=== PATIENT | female | born 1955 | race Caucasian/White ===

== ENCOUNTER 2020-04-13 09:58 | Outpatient (CLI) | payer MEDICARE, OTHER, SELFPAY ==
[2020-04-13 10:29] LABS: Basophils Absolute Auto 0.1 K/mm3 (0.0-0.1); Basophils Percent Auto 1.3 % (0.2-1.2); Eosinophils Absolute Auto 0.3 K/mm3 (0-0.3); Eosinophils Percent Auto 3.6 % (0-4.4); Hematocrit 45.9 % (37.0-47.0); Hemoglobin 15.2 g/dL (12.0-15.0); Immature Granulocyte Absolute 0.02 K/mm3 (0.00-0.031); Immature Granulocyte Percent A 0.3 % (0-0.5); Lymphocytes Absolute Auto 1.97 K/mm3 (0.9-3.2); Lymphocytes Percent Auto 26.6 % (18.3-44.2); Mean Corpuscular HGB Conc 33.1 g/dl (32-36); Mean Corpuscular Hemoglobin 30.4 pg (26-34); Mean Corpuscular Volume 91.8 fl (80-100); Mean Platelet Volume 9.7 fl (7.4-10.4); Monocytes Absolute Auto 0.5 K/mm3 (0.1-0.6); Monocytes Percent Auto 6.2 % (2.6-8.5); Neutrophils Absolute Auto 4.6 K/mm3 (1.3-6.7); Platelet Count Result 284 k/mm3 (150-375); White Blood Count 7.4 K/mm3 (4.5-10.0)
[2020-04-13 10:37] LABS: Alanine Aminotransferase 14 U/L (4-35); Albumin Level 4.2 g/dL (3.5-5.1); Alkaline Phosphatase 129 U/L (38-126); Aspartate Amino Transferase 20 U/L (14-36); Bilirubin,Total 0.5 mg/dL (0.2-1.3); Blood Urea Nitrogen 10 mg/dL (7-17); Calcium 9.1 mg/dL (8.4-10.2); Carbon Dioxide 28 mmol/L (22-30); Chloride 101 mmol/L (98-107); Cholesterol 210 mg/dL (0-200); Estimated Glomerular Filt Rate > 60; Glucose 94 mg/dL (65-105); HDL Direct 37 mg/dL; Potassium 4.4 mmol/L (3.4-5.0); Sodium 135 mmol/L (137-145); Triglycerides 107 mg/dL (<150)
[2020-04-13 10:48] LABS: LDL Cholesterol Direct 145 mg/dL
== END 2020-04-13 09:59 | disposition home or self-care (01) ==
PROVIDERS: PCP Family Medicine; Visit Provider Family Medicine
DX: E78.2 Mixed hyperlipidemia (principal); I10 Essential (primary) hypertension
CPT/HCPCS: 36415; 80053; 80061; 85025

== ENCOUNTER 2020-04-27 10:04 | Outpatient (CLI) | payer MEDICARE, OTHER, SELFPAY ==
--- NOTE | ~2020-04-27 | XR_ITS ---
EXAMINATION: XR chest 2V EXAM DATE: 04/27/2020 10:26 INDICATION: Short of breath. TECHNIQUE: Frontal and lateral projections of the chest obtained and reviewed. Comparison is made to prior examination from 05/06/2016. FINDINGS: Moderate chronic hyperinflation. The lungs are clear. There are no pleural effusions. Th e cardiomediastinal silhouette is within normal limits. There is no pneumothorax suspected. The bon es and soft tissues are unremarkable. IMPRESSION: No acute cardiopulmonary findings. Reviewed, dictated and finalized at location A.
== END 2020-04-27 10:05 | disposition home or self-care (01) ==
PROVIDERS: PCP Family Medicine; Visit Provider Family Medicine
DX: R06.02 Shortness of breath (principal)
CPT/HCPCS: 71046

== ENCOUNTER 2020-05-15 12:52 | Outpatient (CLI) | payer MEDICARE, OTHER, SELFPAY ==
--- NOTE | ~2020-05-15 | US_ITS ---
EXAMINATION: US art doppler w marianela NOWAK EXAM DATE: 05/15/2020 14:03 INDICATION: Claudication. TECHNIQUE: Segmental pressures and plethysmographic and Doppler waveforms of the brachial and lower e xtremity arteries were obtained. There is no prior study for comparison. FINDINGS: Right and left brachial artery pressures of 182 mm Hg and 158 mm Hg, respectively, are concordant (no rmal difference <= 30 mmHg). RIGHT LEG: The ankle-brachial index (LAURA) is 1.05 (normal >= 0.9-1). The great toe-brachial index (TBI) is 0.72 (normal >= 0.65). The lower extremity ratios, segmental pressure gradients as follows; Proximal superficial femoral artery:- 1.04 (190 mmHg). Distal superficial femoral artery: ----- 1.08 (196 mmHg). Popliteal: 1.13 (206 mmHg). Posterior tibial: 0.99 (180 mmHg). Dorsalis pedis: 1.05 (192 mmHg). (Normal gradients <= 20-30 mmHg between adjacent levels on the same leg or the same levels on the two legs). Arterial waveforms are biphasic. LEFT LEG: The ankle-brachial index (LAURA) is 1.01 (normal >= 0.9-1). The great toe-brachial index (TBI) is 0.60 (normal >= 0.65). The lower extremity ratios, segmental pressure gradients as follows; Proximal superficial femoral artery:- Could not obtain ( mmHg). Distal superficial femoral artery: ----- Could not obtain ( mmHg). Popliteal: 1.14 (207 mmHg). Posterior tibial: 1.01 (184 mmHg). Dorsalis pedis: 1.00 (182 mmHg). (Normal gradients <= 20-30 mmHg between adjacent levels on the same leg or the same levels on the two legs). Arterial waveforms are biphasic. IMPRESSION: 1. Right ankle-brachial index 1.05, normal. 2. Left ankle-brachial index 1.01, normal. 3. Elevated blood pressure. Reviewed, dictated and finalized at location A.
--- NOTE | ~2020-05-15 | US_ITS ---
EXAMINATION: US carotid duplex BI DATE: 05/15/2020 14:03 INDICATION: Carotid atherosclerosis and stenosis. Other specified symptoms and signs involving [place] of [place]. TECHNIQUE: Grayscale, color Doppler, and pulsed Doppler images of the cervical carotid arteries were obtained. The degree of vessel stenosis is placed in one of the following categories: normal, <50%, 5 0-69%, >=70% but less than near-occlusion, near-occlusion, or total occlusion. Note that percent sten osis relative to normal distal artery lumen diameter is indirectly measured from velocity measurement s as described by Gaurang, et al. Radiology 2003; 229:340-346. COMPARISON: 10/14/2013 FINDINGS: RIGHT: The right common carotid artery (CCA) peak systolic velocity (PSV) is 113 cm/s. The right internal ca rotid artery (ICA) PSV is 104 cm/s. The right ICA end-diastolic velocity (EDV) is 31 cm/s. The right ICA/CCA PSV ratio is 0.9. Grayscale and color Doppler images yield an estimate of <50% diameter reduc tion from plaque in the ICA. The external carotid artery (ECA) PSV is 131 cm/s. There is antegrade fl ow in the right vertebral artery. LEFT: The left CCA PSV is 88 cm/s. The left ICA PSV is 107 cm/s. The left ICA EDV is 26 cm/s. The left ICA/ CCA PSV ratio is 1.2. Grayscale and color Doppler images yield an estimate of <50% diameter reduction from plaque in the ICA. The ECA PSV is 80 cm/s. There is antegrade flow in the left vertebral artery . IMPRESSION: 1. <50% stenosis in the right internal carotid artery. 2. <50% stenosis in the left internal carotid artery. Reviewed, dictated and finalized at location A.
== END 2020-05-15 12:53 | disposition home or self-care (01) ==
PROVIDERS: PCP Family Medicine; Visit Provider Family Medicine
DX: I73.9 Peripheral vascular disease, unspecified (principal); R09.89 Other specified symptoms and signs involving the circulatory and respiratory systems; I65.23 Occlusion and stenosis of bilateral carotid arteries
CPT/HCPCS: 93880; 93923

== ENCOUNTER 2020-06-11 07:35 | Outpatient (CLI) | payer MEDICARE, OTHER, SELFPAY ==
--- NOTE | 2020-06-16 11:54 | WPDPFTINT ---
PFT Interpretation PFT Interpretation: This PFT met all criteria for ATS standards and reproducibility FEV/FVC post bronchodilator 66% FEV1 61% or 1.25 liters FVC 67% or 1.90 liters TLC 98% or 4.58 liters RV 130% RV/TLC 51% DLCO 66% when adjusted for alveolar volume but not adjusted for hemoglobin Flow volume loops showed significant expiratory coving Impression: Moderate airflow obstruction with air trapping and mild reduced diffusion capacity. This correlates with probable COPD. Clinical correlation is advised.
== END 2020-06-11 07:36 | disposition home or self-care (01) ==
PROVIDERS: PCP Family Medicine; Visit Provider Family Medicine
DX: R06.02 Shortness of breath (principal); F17.200 Nicotine dependence, unspecified, uncomplicated; R94.2 Abnormal results of pulmonary function studies
CPT/HCPCS: 94060; 94726; 94729

== ENCOUNTER 2021-01-05 12:06 | Outpatient (CLI) | payer MEDICARE, OTHER, SELFPAY ==
--- NOTE | ~2021-01-05 | CT_ITS ---
EXAMINATION: CT brain wo con EXAM DATE: 01/05/2021 12:22 INDICATION: S09.90XA - Unspecified injury of head, initial encounter . Fall, frontal head injury. Howie sea and vomiting. TECHNIQUE: Spiral CT of the head was performed without contrast. Axial, coronal and sagittal images were reviewed. The dose-length product (DLP) for this examination was 605.33 mGy-cm. The exposure w as tailored according to patient size, and iterative reconstruction (ASIR) was used as additional dos e reduction technique. Comparison is made to prior examination from 05/20/2014. FINDINGS: There is no acute intraparenchymal hemorrhage. No evidence of intraparenchymal brain mass lesion. No evidence of acute infarction. Please note that initial head CT has limited sensitivity f or small or acute infarctions. There is mild periventricular and subcortical hypodensity, nonspecific but probably related to small vessel ischemic disease. There is moderate prominence of the sulci a nd ventricles related to cerebral atrophy. There is intracranial carotid arteriosclerosis. There a re no extra-axial collections. There is no mass effect or midline shift. The orbits are unremarkabl e. There is small left frontal scalp contusion. The visualized sinuses and mastoid air cells are wel l aerated. IMPRESSION: 1. No acute intracranial findings. 2. Chronic age related findings. 3. Small left frontal scalp effusion. Reviewed, dictated and finalized at location A.
== END 2021-01-05 12:07 | disposition home or self-care (01) ==
PROVIDERS: PCP Family Medicine; Visit Provider Family Medicine
DX: S09.90XA Unspecified injury of head, initial encounter (principal)
CPT/HCPCS: 70450

== ENCOUNTER 2021-03-18 17:10 | Outpatient (CLI) | payer MEDICARE, OTHER, SELFPAY ==
--- NOTE | ~2021-03-18 | MM_ITS ---
EXAMINATION: MM screening [facility] BI w stacie HISTORY: Screening mammogram TECHNIQUE: Craniocaudal and mediolateral oblique 3-D tomosynthesis images were obtained and synthetic 2-D images were generated. CAD analysis was submitted and interpreted. COMPARISON: 02/15/2005, 01/28/2005 BREAST PARENCHYMAL COMPOSITION: There are scattered areas of fibroglandular density. FINDINGS: Scattered benign-appearing calcifications are present. There is no evidence of suspicious m ass, calcification, or architectural distortion to suggest malignancy in either breast. There has bee n no suspicious interval change. IMPRESSION: 1. No mammographic evidence of malignancy. 2. Recommend routine screening mammography in one year. BI-RADS Category 2: Benign finding(s). Reviewed, dictated and finalized at location A.
== END 2021-03-18 17:11 | disposition home or self-care (01) ==
LOC: ANHIMG 17:13
PROVIDERS: PCP Family Medicine; Visit Provider Family Medicine
DX: Z12.31 Encounter for screening mammogram for malignant neoplasm of breast (principal)
CPT/HCPCS: 77063; 77067

== ENCOUNTER 2021-07-16 14:12 | Outpatient (CLI) | payer MEDICARE, OTHER, SELFPAY ==
[2021-07-16 15:10] LABS: Basophils Absolute Auto 0.1 K/mm3 (0.0-0.1); Basophils Percent Auto 0.9 % (0.2-1.2); Eosinophils Absolute Auto 0.1 K/mm3 (0-0.3); Eosinophils Percent Auto 1.3 % (0-4.4); Hematocrit 39.6 % (37.0-47.0); Hemoglobin 13.7 g/dL (12.0-15.0); Immature Granulocyte Absolute 0.04 K/mm3 (0.00-0.031); Immature Granulocyte Percent A 0.5 % (0-0.5); Lymphocytes Percent Auto 20.5 % (18.3-44.2); Mean Corpuscular HGB Conc 34.6 g/dl (32-36); Mean Corpuscular Hemoglobin 31.6 pg (26-34); Mean Corpuscular Volume 91.5 fl (80-100); Monocytes Absolute Auto 0.8 K/mm3 (0.1-0.6); Monocytes Percent Auto 8.9 % (2.6-8.5); Neutrophils Percent Auto 67.9 % (45.5-73.1); Platelet Count Result 310 k/mm3 (150-375); Red Blood Count 4.33 M/mm3 (4.2-5.4); Red Cell Distribution Width 12.2 % (11.5-14.5); White Blood Count 8.8 K/mm3 (4.5-10.0)
[2021-07-20 14:38] LABS: Vitamin D 1,25 (OH)2 Total 28 pg/mL (18-72); Vitamin D2 1,25 (OH)2 <8 pg/mL; Vitamin D3 1,25 (OH)2 28 pg/mL
== END 2021-07-16 14:13 | disposition home or self-care (01) ==
PROVIDERS: PCP Family Medicine; Visit Provider Family Medicine
DX: E78.2 Mixed hyperlipidemia (principal); E55.9 Vitamin D deficiency, unspecified
CPT/HCPCS: 36415; 82652; 85025

== ENCOUNTER 2021-12-22 14:43 | Outpatient (CLI) | payer MEDICARE, OTHER, SELFPAY ==
--- NOTE | ~2021-12-22 | XR_ITS ---
EXAMINATION: XR ribs BI 3V w CXR 2V EXAM DATE: 12/22/2021 15:35 INDICATION: Syncope yesterday, bruising to rt breast/midrib pain bilat . TECHNIQUE: Frontal projection of the upper left ribs, frontal projection of the lower left ribs, obli que projection of the left ribs. Frontal projection of the upper right ribs, frontal projection of t he lower right ribs, oblique projection of the right ribs, frontal and lateral chest x-ray(s) for int erpretation. There is prior chest x-ray from 04/27/2020 for comparison. FINDINGS: There are no displaced acute rib fractures identified. Consider educating patient that even if there is a radiographically occult nondisplaced rib fracture, there is no specific treatment othe r than to refrain from activity that prevents healing. There are cholecystectomy clips. No confluent consolidation, pneumothorax or pleural effusion suspect ed. The lungs are hyperinflated which can be seen with chronic obstructive pulmonary disease (a clini jose miguel diagnosis of functional impairment), but is not diagnostic of it. IMPRESSION: No acute displaced rib fractures bilaterally. Reviewed, dictated and finalized at location G.
--- NOTE | ~2021-12-22 | CT_ITS ---
EXAMINATION: CT brain wo con DATE: 12/22/2021 15:15 INDICATION: Syncope and collapse TECHNIQUE: Computed tomography (CT) of the head was performed without intravenous contrast. Sagittal and coronal reconstructions were performed. The mA was adjusted according to patient size. Iterative reconstruction technique was employed. The dose-length product was 605.33 mGy-cm. COMPARISON: head CT dated 01/05/2021 FINDINGS: No acute intracranial hemorrhage, acute infarction or abnormal extra axial fluid collection. There is mild scattered white matter hypoattenuation consistent with chronic small vessel ischemic disease. S ymmetric prominence of the sulci consistent with mild age-appropriate diffuse cerebral volume loss. Ventricles are normal and symmetric. No mass/mass effect. The orbits, paranasal sinuses and mastoid a ir cells are normal. IMPRESSION: 1. Age-related changes including mild diffuse volume loss and mild scattered white matter hypoattenua tion consistent with chronic small vessel ischemic disease. No acute intracranial process. Reviewed, dictated and finalized at location A. IMPRESSION: 1. Age-related changes including mild diffuse volume loss and mild scattered wh ite matter hypoattenuation consistent with chronic small vessel ischemic diseas e. No acute intracranial process.
--- NOTE | ~2021-12-22 | XR_ITS ---
EXAMINATION: XR humerus LT EXAM DATE: 12/22/2021 15:34 INDICATION: Syncope and collapse, pain throughout lft humerus TECHNIQUE: 2 orthogonal projections left humerus. Lateral projection of the elbow. There is no prio r study for comparison. FINDINGS: There are no acute left humerus fractures or dislocations identified. There is no subcutan eous gas. The soft tissue is unremarkable. There are no radiopaque foreign bodies. IMPRESSION: 1. XR humerus LT exam without acute osseous findings. Reviewed, dictated and finalized at location G.
[2021-12-22 16:54] LABS: Basophils Absolute Auto 0.1 K/mm3 (0.0-0.1); Basophils Percent Auto 0.7 % (0.2-1.2); Eosinophils Absolute Auto 0.3 K/mm3 (0-0.3); Eosinophils Percent Auto 2.6 % (0-4.4); Hematocrit 41.2 % (37.0-47.0); Hemoglobin 13.6 g/dL (12.0-15.0); Immature Granulocyte Absolute 0.04 K/mm3 (0.00-0.031); Immature Granulocyte Percent A 0.4 % (0-0.5); Lymphocytes Absolute Auto 2.65 K/mm3 (0.9-3.2); Lymphocytes Percent Auto 24.8 % (18.3-44.2); Mean Corpuscular Hemoglobin 31.9 pg (26-34); Mean Corpuscular Volume 96.5 fl (80-100); Mean Platelet Volume 9.7 fl (7.4-10.4); Monocytes Absolute Auto 0.8 K/mm3 (0.1-0.6); Neutrophils Absolute Auto 6.9 K/mm3 (1.3-6.7); Neutrophils Percent Auto 64.5 % (45.5-73.1); Platelet Count Result 291 k/mm3 (150-375); Red Blood Count 4.27 M/mm3 (4.2-5.4); Red Cell Distribution Width 12.9 % (11.5-14.5); White Blood Count 10.7 K/mm3 (4.5-10.0)
[2021-12-22 17:28] LABS: Alanine Aminotransferase 17 U/L (4-35); Albumin Level 4.5 g/dL (3.5-5.1); Alkaline Phosphatase 152 U/L (38-126); Anion Gap 7 mmol/L (8-16); Aspartate Amino Transferase 26 U/L (14-36); Bilirubin,Total 0.3 mg/dL (0.2-1.3); Blood Urea Nitrogen 15 mg/dL (7-17); Carbon Dioxide 29 mmol/L (22-30); Chloride 98 mmol/L (98-107); Cholesterol 121 mg/dL (0-200); Estimated Glomerular Filt Rate > 60; Glucose 87 mg/dL (65-110); HDL Direct 39 mg/dL; Potassium 3.6 mmol/L (3.4-5.0); Sodium 134 mmol/L (137-145); Triglycerides 122 mg/dL (<150)
[2021-12-22 17:38] LABS: LDL Cholesterol Direct 52 mg/dL
== END 2021-12-22 14:44 | disposition home or self-care (01) ==
LOC: ANHIMG 14:57
PROVIDERS: PCP Family Medicine; Visit Provider Nurse Practitioner Gerontology
DX: S00.93XA Contusion of unspecified part of head, initial encounter (principal); R55 Syncope and collapse; F17.210 Nicotine dependence, cigarettes, uncomplicated; S20.219A Contusion of unspecified front wall of thorax, initial encounter; M79.603 Pain in arm, unspecified; E78.5 Hyperlipidemia, unspecified; I10 Essential (primary) hypertension
CPT/HCPCS: 36415; 70450; 71046; 71110; 73060; 80053; 80061; 84443; 85025

== ENCOUNTER 2022-05-18 06:32 | Outpatient (CLI) | payer MEDICARE, OTHER, SELFPAY ==
--- NOTE | 2022-05-18 | EST_ITS ---
Patient Info Name: Sheryl Dejesus Age: 66 years : 1955 Gender: Female Ht: 63 in Wt: 147 lbs BSA: 1.74 m2 HR: 73 bpm BP: 177 / 87 mmHg Exam Date: 05/18/2022 9:56 AM Patient Status: Outpatient Admit Date: 05/18/2022 Staff Ordering Physician: Madison Leos NP Attending Provider: DR. KINGSLEY Exercise Technologist: Alee Su CT Exercise Physician: Roberto Kingsley DO Exam Type: CA stress elizabeth w NM Study Info Indications I67.9 - Cerebrovascular disease, unspecified A regadenoson stress test was performed. Summary 1. 1. Negative lexiscan stress test for ischemic ST changes by ECG criteria. 2. 2. Baseline hypertension. 3. 3. Nuclear scan to follow and will be reported separately. Please correlate with it. 4. 4. Patient informed of the above results. Protocol: Lexiscan Stress ECG Details Stage: REST Duration (min): 2 min : 1 sec HR (bpm): 73 SBP (mmHg): 177 DBP (mmHg): 87 Stage: REST Duration (min): 18 min : 55 sec HR (bpm): 71 SBP (mmHg): 177 DBP (mmHg): 87 Stage: STAGE 1 Duration (min): 1 min : 0 sec HR (bpm): 85 SBP (mmHg): 173 DBP (mmHg): 69 Stage: RECOVERY Duration (min): 1 min : 0 sec HR (bpm): 87 SBP (mmHg): 173 DBP (mmHg): 69 Stage: RECOVERY Duration (min): 2 min : 0 sec HR (bpm): 84 SBP (mmHg): 173 DBP (mmHg): 69 Stage: RECOVERY Duration (min): 3 min : 0 sec HR (bpm): 84 SBP (mmHg): 145 DBP (mmHg): 69 Stage: RECOVERY Duration (min): 3 min : 14 sec HR (bpm): 81 SBP (mmHg): 145 DBP (mmHg): 69 Rest HR: 71 bpm Peak HR: 89 bpm Rest Sys BP: 177 mmHg Peak Sys BP: 173 mmHg Max Pred HR: 153 bpm % Max Pred HR: 58 % Target HR: 130 bpm Max RPP: 15,397 bpm*mmHg Termination Reason: Completed protocol Cardiac Symptoms: Shortness of breath Total Time: 1 min : 0 sec Rest Olmedo BP: 87 mmHg Peak Olmedo BP: 69 mmHg Total Dose: 0.4 mg Resting ECG Sinus rhythm. Stress ECG No ST changes. Arrhythmias None. Report Signatures
--- NOTE | ~2022-05-18 | NM_ITS ---
EXAMINATION: NM elizabeth stress w perfusion DATE: 05/18/2022 10:43 INDICATION: Shortness of breath. Cerebrovascular disease. TECHNIQUE: Rest images were obtained following intravenous administration of 12.0 mCi Tc99m tetrofosm in (Myoview). The patient was infused intravenously with Lexiscan (Regadenoson). Then, 31.9 mCi Tc99m tetrofosmin (Myoview) was administered intravenously, and stress images were obtained. Data was kelsi nstructed into short axis and horizontal and vertical long axis SPECT images. Gated SPECT images were also obtained. COMPARISON: None. FINDINGS: There is no definite reversible or fixed perfusion abnormality to suggest ischemia or infar ction. There is normal left ventricular chamber size, wall motion and ejection fraction. Left ventr icular ejection fraction measures >70%. IMPRESSION: 1. Normal myocardial perfusion at rest and during stress. 2. Left ventricular ejection fraction measuring >70%. Reviewed, dictated and finalized at location A.
--- NOTE | 2022-05-18 07:42 | ECHO_ITS ---
Patient Info Name: Sheryl Dejesus Age: 66 years : 1955 Gender: Female Ht: 63 in Wt: 150 lbs BSA: 1.76 m2 HR: 75 bpm BP: 144 / 92 mmHg Technical Quality: Good Exam Date: 05/18/2022 8:13 AM Exam Location: [facility] Patient Status: Outpatient Admit Date: 05/18/2022 Staff Ordering Physician: Madison Leos NP Floor Runner: Reed Toney RDCS, RT Attending Provider: Madison Leos NP Referring Physician: Dafne RIBEIRO; Exam Type: CA echo doppler color flow Study Info Indications I05.0 - Rheumatic mitral stenosis Complete two-dimensional, color flow and Doppler transthoracic echocardiogram is performed. Strain analysis performed. Summary 1. Complete two-dimensional, color flow and Doppler transthoracic echocardiogram is performed. 2. Left ventricular chamber dimension is normal. 3. Left ventricular systolic function is normal, estimated at 60-65%. 4. The left ventricular diastolic function is grade I diastolic dysfunction. 5. E/e' 10 is mildly elevated. 6. Global longitudinal strain is normal at -18.8%. 7. The mitral valve has mildly thickened leaflets. 8. There is mild mitral valve regurgitation. Left Ventricle E/e' 10 is mildly elevated. Global longitudinal strain is normal at -18.8%. Left ventricular chamber dimension is normal. Left ventricular systolic function is normal, estimated at 60-65%. The left ventricular diastolic function is grade I diastolic dysfunction. Right Ventricle Right ventricular systolic function is normal and with normal TAPSE 2.1 cm. Right ventricular chamber dimension is normal. Left Atria Left atrial chamber dimension is normal. Right Atria Right atrial chamber dimension is normal. Aortic Valve The aortic valve is trileaflet. There is no aortic valve stenosis. There is no aortic valve regurgitation. Pulmonic Valve There is no pulmonic regurgitation. Mitral Valve The mitral valve has mildly thickened leaflets. There is no mitral valve stenosis. There is mild mitral valve regurgitation. Tricuspid Valve There is no tricuspid valve regurgitation. Pericardium/Pleural There is no pericardial effusion. Inferior Vena Cava Normal inferior vena cava with >50% collapse upon inspiration consistent with normal right atrial pressure, 5 mmHg. Aorta The aortic root size at the sinus of Valsalva is normal. Left Ventricular Outflow Tract Name Value Normal LVOT 2D LVOT Diameter 2.0 cm LVOT Doppler LVOT Peak Gradient 6 mmHg LVOT Mean Gradient 3 mmHg LVOT VTI 27 cm LVOT VTI/AV VTI Ratio 0.8 LVOT Stroke Volume 82 ml LVOT CO 5.7 l/min LVOT CI 3.2 l/min/m2 Mitral Valve Name Value Normal MV Doppler
== END 2022-05-18 06:33 | disposition home or self-care (01) ==
PROVIDERS: PCP Family Medicine; Visit Provider Nurse Practitioner Gerontology
DX: I10 Essential (primary) hypertension (principal); Z72.0 Tobacco use; I67.9 Cerebrovascular disease, unspecified; I05.9 Rheumatic mitral valve disease, unspecified; R06.02 Shortness of breath
CPT/HCPCS: 78452; 93017; 93306; A9502; J2785

== ENCOUNTER 2022-05-25 08:36 | Outpatient (CLI) | payer MEDICARE, OTHER, SELFPAY ==
--- NOTE | ~2022-05-25 | CT_ITS ---
EXAMINATION: CT lung screening DATE: 05/25/2022 09:00 INDICATION: Personal history of nicotine dependence, current smoker with 30 pack year history TECHNIQUE: Computed tomography (CT) of the chest was performed without intravenous contrast. The dose -length product (DLP) was 58.56 mGy-cm. Automated exposure control and iterative reconstruction techn [employer] were employed. COMPARISON: None FINDINGS: There is a 2 mm nodule of the left lower lobe. The lungs are free of acute opacities. No pl eural effusion or pneumothorax. Calcified pulmonary nodules and calcified right hilar and mediastinal lymph nodes are consistent with old granulomatous disease. No pathologically enlarged thoracic lymph nodes are identified. The heart size is normal. Calcified coronary artery atherosclerosis is noted. There is a small sliding hiatal hernia. The gallbladder is surgically absent. IMPRESSION: 1. Lung-RADS category 2: Benign appearance or behavior. Continue annual screening with noncontrast lo w-dose chest CT in 12 months. Reviewed, dictated and finalized at location B. IMPRESSION: 1. Lung-RADS category 2: Benign appearance or behavior. Continue annual screeni ng with noncontrast low-dose chest CT in 12 months.
== END 2022-05-25 08:37 | disposition home or self-care (01) ==
LOC: ANHIMG 08:45
PROVIDERS: PCP Family Medicine; Visit Provider Nurse Practitioner Gerontology
DX: Z12.2 Encounter for screening for malignant neoplasm of respiratory organs (principal); Z87.891 Personal history of nicotine dependence
CPT/HCPCS: 71271

== ENCOUNTER 2022-07-13 12:40 | Outpatient (CLI) | payer MEDICARE, OTHER, SELFPAY ==
--- NOTE | ~2022-07-13 | DEXA_ITS ---
Bone Density Report Name: WINTER EDMOND Age: 66 Sex: Female Ethnicity: White Date of : 1955 Indication: postmenopausal; screening for osteoporosis; height loss; Referring Provider: KIKE SAN Study: Bone densitometry was performed. Exam Date: July 13, 2022 Accession number: [id number] Bone Density: Region BMD T-score Z-score Classification AP Spine(L1-L4) 0.783 -2.4 -0.5 Osteopenia Femoral Neck (Left) 0.578 -2.4 -0.8 Osteopenia Total Hip (Left) 0.654 -2.4 -1.0 Osteopenia Femoral Neck (Right) 0.621 -2.1 -0.4 Osteopenia Total Hip (Right) 0.657 -2.3 -1.0 Osteopenia Total Hip Mean 0.656 -2.4 -1.0 Osteopenia World Health Organization criteria for BMD impression classify patients as: Normal (T-score at or above -1.0), Osteopenia (T-score between -1.0 and -2.5), or Osteoporosis (T-score at or below -2.5). 10-year Fracture Risk(1): Major Osteoporotic Fracture 14% Hip Fracture 4.5% Reported Risk Factors: [place] (), Neck BMD=0.578, BMI=26.9, smoking (1) FRAX(R) Version 3.08. Fracture probability calculated for an untreated patient. Fracture probability may be lower if the patient has received treatment. Clinical Information Provided by Patient: Smokes Patient maximum height was 63 Menopause Age: 44 No regular weight bearing exercise Drinks caffeinated beverages Onset of menses at age 8 Number of children 2 Impression: The patient has low bone mass, based on the Total Spine T-score. The patient has an estimated ten-year risk of hip fracture of 4.5% and an estimated ten-year risk of major fracture of 14%, based on the WHO FRAX algorithm. The patient has risk factors, including: smoking. Discussion: BONE DENSITY IS LOW AT ONE OR MORE SKELETAL SITES. THE PATIENT'S BMD AND CLINICAL RISK FACTORS CONTRIBUTE TO THIS PATIENT'S INCREASED RISK OF FRACTURE. This patient's lowest T-score is low at one or more skeletal sites. It meets the World Health Organization's (WHO) criteria for ?low bone mass? (T-score between -1.0 and -2.5). The patient's 10-year risk of hip fracture as calculated by FRAX exceeds the threshold where pharmacological therapy is recommended by the National Osteoporosis Foundation (NOF). However, all treatment decisions require clinical judgment and consideration of individual patient factors, including patient preferences, comorbidities, previous drug use, risk factors not captured in the FRAX model (e.g., frailty, falls, vitamin D deficiency, increased bone turnover, interval significant decline in bone density) and possible under or overestimation of fracture risk by FRAX. The patient should follow a healthful lifestyle (good nutrition with adequate calcium and vitamin D, and appropriate weight-bearing exercise). Follow-Up: Consider a repeat
== END 2022-07-13 12:41 | disposition home or self-care (01) ==
LOC: ANHIMG 12:43
PROVIDERS: PCP Family Medicine; Visit Provider Nurse Practitioner Gerontology
DX: Z78.0 Asymptomatic menopausal state (principal); M85.851 Other specified disorders of bone density and structure, right thigh; M85.88 Other specified disorders of bone density and structure, other site; M85.852 Other specified disorders of bone density and structure, left thigh
CPT/HCPCS: 77080

== ENCOUNTER 2023-01-16 10:17 | Outpatient (CLI) | payer MEDICARE, OTHER, SELFPAY ==
[2023-01-16 11:04] LABS: Basophils Percent Auto 0.3 % (0.2-1.2); Hematocrit 39.7 % (37.0-47.0); Hemoglobin 13.6 g/dL (12.0-15.0); Immature Granulocyte Absolute 0.11 K/mm3 (0.00-0.031); Immature Granulocyte Percent A 0.8 % (0-0.5); Lymphocytes Absolute Auto 1.54 K/mm3 (0.9-3.2); Lymphocytes Percent Auto 10.9 % (18.3-44.2); Mean Corpuscular HGB Conc 34.3 g/dl (32-36); Mean Corpuscular Hemoglobin 31.4 pg (26-34); Mean Corpuscular Volume 91.7 fl (80-100); Mean Platelet Volume 9.3 fl (7.4-10.4); Monocytes Absolute Auto 0.6 K/mm3 (0.1-0.6); Monocytes Percent Auto 4.4 % (2.6-8.5); Neutrophils Absolute Auto 11.9 K/mm3 (1.3-6.7); Neutrophils Percent Auto 83.6 % (45.5-73.1); Platelet Count Result 402 k/mm3 (150-375); Red Blood Count 4.33 M/mm3 (4.2-5.4); Red Cell Distribution Width 11.9 % (11.5-14.5); White Blood Count 14.2 K/mm3 (4.5-10.0)
[2023-01-16 11:17] LABS: Alanine Aminotransferase 22 U/L (6-35); Albumin Level 4.5 g/dL (3.5-5.1); Alkaline Phosphatase 104 U/L (38-126); Anion Gap 6 mmol/L (8-16); Aspartate Amino Transferase 19 U/L (14-36); Bilirubin,Total 0.5 mg/dL (0.2-1.3); Blood Urea Nitrogen 15 mg/dL (7-17); Calcium 9.1 mg/dL (8.4-10.2); Carbon Dioxide 33 mmol/L (22-30); Chloride 91 mmol/L (98-107); Cholesterol 133 mg/dL (0-200); Estimated Glomerular Filt Rate > 60; Glucose 125 mg/dL (65-110); HDL Direct 48 mg/dL; Potassium 3.5 mmol/L (3.4-5.0); Sodium 130 mmol/L (137-145); Triglycerides 102 mg/dL (<150)
[2023-01-16 11:28] LABS: LDL Cholesterol Direct 62 mg/dL
[2023-01-16 12:17] LABS: Thyroid Stimulating Hormone Reflex 0.549 uIU/mL (0.465-4.68)
[2023-01-19 23:36] LABS: Vitamin D 1,25 (OH)2 Total 44 pg/mL (18-72); Vitamin D2 1,25 (OH)2 <8 pg/mL; Vitamin D3 1,25 (OH)2 44 pg/mL
== END 2023-01-16 10:18 | disposition home or self-care (01) ==
PROVIDERS: PCP Family Medicine; Visit Provider Nurse Practitioner Gerontology
DX: E55.9 Vitamin D deficiency, unspecified (principal); E78.5 Hyperlipidemia, unspecified; I10 Essential (primary) hypertension
CPT/HCPCS: 36415; 80053; 80061; 82652; 84443; 85025

== ENCOUNTER 2023-02-23 00:59 | Day surgery (SDC) | payer MEDICARE, OTHER, SELFPAY ==
[2023-02-16 14:16] VITALS: BMI 27.5
--- NOTE | ~2023-02-23 | XR_ITS ---
EXAMINATION: XR_ENEMABAC_CR DATE: 02/23/2023 14:33 INDICATION: Incomplete colonoscopy TECHNIQUE: A clam dredge boat captain radiograph was obtained. A catheter was inserted into the patient's rectum. Contra st was infused by gravity. Gas was infused by hand pump. A total of 47 fluoroscopic spot images and 1 5 conventional radiographs were obtained. Fluoroscopy exposure time was 1.4 minutes. COMPARISON: None. FINDINGS: There is moderate diverticulosis in the colon most prominent along the sigmoid and distal descending colon. No strictures, polyps or other mucosal irregularities suspicious for malignancy. Contrast fill s the normal appendix. Cholecystectomy clips in right upper quadrant. IMPRESSION: 1. Moderate diverticulosis. Reviewed, dictated and finalized at location [facility]. IMPRESSION: 1. Moderate diverticulosis.
[2023-02-23 10:59] VITALS: BP 182/78; PULSE 66; RESP 16; TEMP 36.2; O2SAT 100
[2023-02-23] MEDS: LACTATED RINGERS 1,000 ML 150 ML IV CONT (11:02)
--- NOTE | 2023-02-23 11:50 | PM.HPGS ---
History of Present Illness History of Present Illness Consent: Risks, benefits, and alternatives have been discussed and questions answered. Patient agrees to proceed with procedure. Chief complaint: neoplasm screening Narrative: Sheryl Dejesus is a 67 year old female Presents for screening colonoscopy. Patient's current weight appetite bowel movements are normal. Patient denies abdominal pain. She has had no bleeding. Previous colonoscopy 10 years ago was unremarkable. Review of Systems Review of Systems: Review of systems noncontributory. [facility] Past Medical History Medical History Arm pain Carotid artery bruit Chest wall contusion Chronic hypertension Chronic insomnia Concussion COPD (chronic obstructive pulmonary disease) Diverticulosis Fall JOANNA (generalized anxiety disorder) Head concussion Head contusion Head injury Mixed hyperlipidemia Nausea Non compliance w medication regimen Post-concussion headache Smoker unmotivated to quit Syncope Tobacco dependence Family History Family History Father Family history of premature coronary heart disease, Onset Age: 69 Patient's father is Acute myocardial infarction Mother Hypertension Family history of elevated blood lipids Family history of diabetes mellitus in first degree relative Other Diabetes mellitus Family history of heart disease in male family member before age 55 Social History Social History Social History: Life Partner Smoking packs per day: 0.5 Smoking cigarettes per day: 10.0 Years smoked: 56 Smoking pack-years: 28.00 Smoking status: Current every day smoker Tobacco type: cigarettes Second hand tobacco smoke exposure: Yes Smoking end date: 10/02/91 Additional smoking assessment comments: Pt is still smoking cigarettes. Alcohol intake: current Alcohol use details: rarely Substance use: never Substance use type: does not use Living arrangements: with family Additional living arrangements comments: pt lives with boyfriend Occupation/Education: occupation Gender identity (if verbalized by the patient): Female Sexual Orientation (if Verbalized by the Patient): Straight or Heterosexual Spiritual care concerns: No Meds Home Medications and Allergies Home Medications Medication Instructions Recorded Confirmed Type rosuvastatin 10 mg tablet (Crestor) 10 mg PO DAILY #90 tabs 06/24/22 02/23/23 Rx cholecalciferol (vitamin D3) 125 125 mcg PO DAILY 09/07/22 02/23/23 History mcg (5,000 unit) capsule diphenhydramine HCl 25 mg tablet 25 mg PO QHS PRN other 09/07/22 02/23/23 History (Allergy Relief (diphenhydramine)) loratadine 10 mg tablet (Claritin) 10 mg PO DAILY 09/07/22 02/23/23 History multivitamin-ferrous 1 tablet PO DAILY 09/07/22 02/23/23 History fumarate-folic acid 18 mg-400 mcg tablet (Centrum Women) escitalopram oxalate 10 mg tablet 20 mg PO DAILY 02/16/23 02/23/23 History hydralazine 25 mg tablet 25 mg PO TID 02/16/23 02/23/23 History isosorbide mononitrate 30 mg 30 mg PO DAILY 02/16/23 02/23/23 History tablet,extended release 24 hr lisinopril 20 1 tablet PO DAILY 02/16/23 02/23/23 History mg-hydrochlorothiazide 12.5 mg tablet quetiapine 25 mg tablet 25 mg PO HS 02/16/23 02/23/23 History montelukast 10 mg tablet See Rx Instructions .Route 02/21/23 02/23/23 Rx .COMPLEX #90 tabs Allergies Allergy/AdvReac Type Severity Reaction Status Date / Time No Known Allergies Allergy Verified 02/23/23 10:58 Vital Signs Vital Signs - 24 hr 02/23/23 10:59 Temperature 97.2 F L Pulse Rate 66 Respiratory Rate 16 Blood Pressure 182/78 H Pulse Oximetry 100 Oxygen Delivery Room Air Exam Narrative: Physical exam reveals patient to be alert. Vital sign
--- NOTE | 2023-02-23 11:58 | WPDANESEPPF ---
Anes - Initial Pre Proc Eval Procedure: Operation Date: 02/23/23 11:45 Proposed Procedures p Screening Colonoscopy - Michael Saucedo MD Date/Time: 02/23/23 11:58 Surgeon: Michael Saucedo MD Pre Op Diagnosis: neoplasm screening Patient Data Age: 67 Gender: F Height: 1.6 m Weight: 66.3 kg Last Vital Signs Temp 97.2 F L 02/23/23 10:59 Pulse 66 02/23/23 10:59 Resp 16 02/23/23 10:59 BP 182/78 H 02/23/23 10:59 Pulse Ox 100 02/23/23 10:59 O2 Del Method Room Air 02/23/23 10:59 Allergies Allergy/AdvReac Type Severity Reaction Status Date / Time No Known Allergies Allergy Verified 02/23/23 10:58 Home Medications Medication Instructions Recorded Confirmed Type rosuvastatin 10 mg tablet (Crestor) 10 mg PO DAILY #90 tabs 06/24/22 02/23/23 Rx cholecalciferol (vitamin D3) 125 125 mcg PO DAILY 09/07/22 02/23/23 History mcg (5,000 unit) capsule diphenhydramine HCl 25 mg tablet 25 mg PO QHS PRN other 09/07/22 02/23/23 History (Allergy Relief (diphenhydramine)) loratadine 10 mg tablet (Claritin) 10 mg PO DAILY 09/07/22 02/23/23 History multivitamin-ferrous 1 tablet PO DAILY 09/07/22 02/23/23 History fumarate-folic acid 18 mg-400 mcg tablet (Centrum Women) escitalopram oxalate 10 mg tablet 20 mg PO DAILY 02/16/23 02/23/23 History hydralazine 25 mg tablet 25 mg PO TID 02/16/23 02/23/23 History isosorbide mononitrate 30 mg 30 mg PO DAILY 02/16/23 02/23/23 History tablet,extended release 24 hr lisinopril 20 1 tablet PO DAILY 02/16/23 02/23/23 History mg-hydrochlorothiazide 12.5 mg tablet quetiapine 25 mg tablet 25 mg PO HS 02/16/23 02/23/23 History montelukast 10 mg tablet See Rx Instructions .Route 02/21/23 02/23/23 Rx .COMPLEX #90 tabs Patient hx anesthesia problems: none Family hx anesthesia problems: none Results Review: All pre-operative results and documents have been reviewed as part of the pre-operative evaluation. [facility] Past Medical History Medical History Arm pain Carotid artery bruit Chest wall contusion Chronic hypertension Chronic insomnia Concussion COPD (chronic obstructive pulmonary disease) Diverticulosis Fall JOANNA (generalized anxiety disorder) Head concussion Head contusion Head injury Mixed hyperlipidemia Nausea Non compliance w medication regimen Post-concussion headache Smoker unmotivated to quit Syncope Tobacco dependence Family History Family History Father Family history of premature coronary heart disease, Onset Age: 69 Patient's father is Acute myocardial infarction Mother Hypertension Family history of elevated blood lipids Family history of diabetes mellitus in first degree relative Other Diabetes mellitus Family history of heart disease in male family member before age 55 Social History Social History Social History: Life Partner Smoking packs per day: 0.5 Smoking cigarettes per day: 10.0 Years smoked: 56 Smoking pack-years: 28.00 Smoking status: Current every day smoker Tobacco type: cigarettes Second hand tobacco smoke exposure: Yes Smoking end date: 10/02/91 Additional smoking assessment comments: Pt is still smoking cigarettes. Alcohol intake: current Alcohol use details: rarely Substance use: never Substance use type: does not use Living arrangements: with family Additional living arrangements comments: pt lives with boyfriend Occupation/Education: occupation Gender identity (if verbalized by the patient): Female Sexual Orientation (if Verbalized by the Patient): Straight or Heterosexual Spiritual care concerns: No Anes - Eval Final PreProcedure Day of Procedure 02/23/23 11:58 Patient weight: normal Heart: regular rate and rhythm Lungs: clear to auscultation
--- NOTE | 2023-02-23 12:54 | SUR.OPER ---
Oral suction performed by [facility]
[2023-02-23 13:06] VITALS: BP 161/75; PULSE 85; RESP 23; O2SAT 96
[2023-02-23 13:16] VITALS: BP 171/86; PULSE 79; RESP 25; O2SAT 100
[2023-02-23 13:26] VITALS: BP 190/99; PULSE 67; RESP 22; O2SAT 100
--- NOTE | 2023-02-23 13:34 | SUR.PHASEII ---
1326 Pt blood pressure 190/99. Pt did not take home blood pressure medications today. Dr. Kelly(anesthesia) notified) Orders to have pt to take home medications for blood pressure upon discharge. Pt states understanding.
== END 2023-02-23 13:45 | disposition home or self-care (01) ==
PROVIDERS: PCP Family Medicine; Visit Provider Internal Medicine Gastroenterology
PROC: 0DJD8ZZ Inspection of Lower Intestinal Tract, Via Natural or Artificial Opening Endoscopic (ICD-10-PCS; CPT 45378; principal; 2023-02-23 11:45)
DX: Z12.11 Encounter for screening for malignant neoplasm of colon (principal); K57.30 Diverticulosis of large intestine without perforation or abscess without bleeding; J44.9 Chronic obstructive pulmonary disease, unspecified; E78.5 Hyperlipidemia, unspecified; F17.210 Nicotine dependence, cigarettes, uncomplicated
CPT/HCPCS: G0121; 74280; J2704; J7120

== ENCOUNTER 2023-05-31 11:37 | Outpatient (CLI) | payer MEDICARE, OTHER, SELFPAY ==
--- NOTE | ~2023-05-31 | CT_ITS ---
CT Scan of the Chest without Contrast: Clinical Indication: Lung cancer screening, personal history of nicotine dependence Technique: Contiguous sections were acquired throughout the chest without intravenous contrast. Dose reduction technique was used on this scan by utilizing automated exposure control and iterative recon struction technique. The dose-length product (DLP) was 65.44 mGy-cm. COMPARISON: 05/25/2022 Findings: There is no evidence of any significant mediastinal, hilar or axillary lymphadenopathy. Calcified med iastinal lymph nodes are present. The mediastinal soft tissues appear normal. There is no evidence of pleural or pericardial effusion. Calcified right upper lobe granuloma noted. No other pulmonary nodule seen. Images through the upper abdomen reveal no abnormalities. Impression: Lung RADS 2: Benign appearance. 12 month follow-up screening CT advised. Reviewed, dictated and finalized at [facility]. Impression: Lung RADS 2: Benign appearance. 12 month follow-up screening CT advised.
== END 2023-05-31 11:38 | disposition home or self-care (01) ==
PROVIDERS: PCP Family Medicine; Visit Provider Physician Assistant
DX: Z12.2 Encounter for screening for malignant neoplasm of respiratory organs (principal); F17.210 Nicotine dependence, cigarettes, uncomplicated
CPT/HCPCS: 71271

== ENCOUNTER 2023-06-19 15:03 | Outpatient (CLI) | payer MEDICARE, OTHER, SELFPAY ==
[2023-06-19 16:07] LABS: Basophils Absolute Auto 0.1 K/mm3 (0.0-0.1); Basophils Percent Auto 1.3 % (0.2-1.2); Eosinophils Absolute Auto 0.3 K/mm3 (0-0.3); Eosinophils Percent Auto 3.2 % (0-4.4); Hematocrit 39.2 % (37.0-47.0); Hemoglobin 13.5 g/dL (12.0-15.0); Immature Granulocyte Absolute 0.02 K/mm3 (0.00-0.031); Immature Granulocyte Percent A 0.2 % (0-0.5); Lymphocytes Absolute Auto 3.26 K/mm3 (0.9-3.2); Lymphocytes Percent Auto 31.8 % (18.3-44.2); Mean Corpuscular HGB Conc 34.4 g/dl (32-36); Mean Corpuscular Hemoglobin 31.6 pg (26-34); Mean Corpuscular Volume 91.8 fl (80-100); Mean Platelet Volume 9.9 fl (7.4-10.4); Monocytes Absolute Auto 0.8 K/mm3 (0.1-0.6); Monocytes Percent Auto 7.7 % (2.6-8.5); Neutrophils Absolute Auto 5.7 K/mm3 (1.3-6.7); Neutrophils Percent Auto 55.8 % (45.5-73.1); Platelet Count Result 352 k/mm3 (150-375); Red Blood Count 4.27 M/mm3 (4.2-5.4); Red Cell Distribution Width 11.9 % (11.5-14.5); White Blood Count 10.2 K/mm3 (4.5-10.0)
[2023-06-19 16:18] LABS: Alanine Aminotransferase 21 U/L (6-35); Albumin Level 4.5 g/dL (3.5-5.1); Alkaline Phosphatase 110 U/L (38-126); Anion Gap 9 mmol/L (8-16); Aspartate Amino Transferase 28 U/L (14-36); Bilirubin,Total 0.5 mg/dL (0.2-1.3); Blood Urea Nitrogen 16 mg/dL (7-17); Calcium 9.5 mg/dL (8.4-10.2); Carbon Dioxide 29 mmol/L (22-30); Chloride 89 mmol/L (98-107); Cholesterol 146 mg/dL (0-200); Estimated Glomerular Filt Rate > 60; Glucose 83 mg/dL (65-110); HDL Direct 47 mg/dL; Potassium 3.4 mmol/L (3.4-5.0); Sodium 127 mmol/L (137-145); Triglycerides 97 mg/dL (<150)
[2023-06-19 16:29] LABS: LDL Cholesterol Direct 73 mg/dL
== END 2023-06-19 15:04 | disposition home or self-care (01) ==
PROVIDERS: PCP Family Medicine; Visit Provider Physician Assistant
DX: E78.5 Hyperlipidemia, unspecified (principal); I10 Essential (primary) hypertension; Z72.0 Tobacco use
CPT/HCPCS: 36415; 80053; 80061; 85025

== ENCOUNTER 2023-10-11 11:36 | Outpatient (CLI) | payer MEDICARE, OTHER, SELFPAY ==
--- NOTE | ~2023-10-11 | XR_ITS ---
XR chest 2V DATE: 10/11/2023 12:03 INDICATION: Chest pain, cough TECHNIQUE: PA and lateral views COMPARISON: 05/31/2023 CT lung screening 04/27/2022 view chest FINDINGS: Normal heart size. Mild aortic calcification and unfolding. No hilar or mediastinal enlarge ment. Mild bilateral hyperinflation. No pulmonary infiltrate or consolidation, pleural effusion or pu lmonary vascular congestion or pneumothorax is detected. Diffuse osteopenia. Dextroscoliosis of the thoracic spine. IMPRESSION: No active cardiopulmonary disease Reviewed, dictated and finalized at location [facility]. 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
[2023-10-11 12:04] LABS: Basophils Absolute Auto 0.1 K/mm3 (0.0-0.1); Basophils Percent Auto 0.9 % (0.2-1.2); Eosinophils Absolute Auto 0.3 K/mm3 (0-0.3); Eosinophils Percent Auto 3.8 % (0-4.4); Hematocrit 37.2 % (37.0-47.0); Hemoglobin 12.1 g/dL (12.0-15.0); Immature Granulocyte Absolute 0.02 K/mm3 (0.00-0.031); Immature Granulocyte Percent A 0.2 % (0-0.5); Lymphocytes Absolute Auto 2.78 K/mm3 (0.9-3.2); Lymphocytes Percent Auto 32.7 % (18.3-44.2); Mean Corpuscular HGB Conc 32.5 g/dl (32-36); Mean Corpuscular Volume 95.4 fl (80-100); Monocytes Absolute Auto 0.8 K/mm3 (0.1-0.6); Monocytes Percent Auto 9.2 % (2.6-8.5); Neutrophils Absolute Auto 4.5 K/mm3 (1.3-6.7); Neutrophils Percent Auto 53.2 % (45.5-73.1); Platelet Count Result 335 k/mm3 (150-375); Red Cell Distribution Width 13.1 % (11.5-14.5); White Blood Count 8.5 K/mm3 (4.5-10.0)
[2023-10-11 12:16] LABS: Alanine Aminotransferase 19 U/L (6-35); Albumin Level 4.3 g/dL (3.5-5.1); Alkaline Phosphatase 126 U/L (38-126); Anion Gap 6 mmol/L (8-16); Aspartate Amino Transferase 25 U/L (14-36); Bilirubin,Total 0.5 mg/dL (0.2-1.3); Blood Urea Nitrogen 18 mg/dL (7-17); Carbon Dioxide 29 mmol/L (22-30); Chloride 91 mmol/L (98-107); Estimated Glomerular Filt Rate > 60; Glucose 93 mg/dL (65-110); Potassium 3.8 mmol/L (3.4-5.0); Sodium 126 mmol/L (137-145)
[2023-10-11 12:28] LABS: Troponin I < 0.012 ng/mL (0.000-0.034)
== END 2023-10-11 11:37 | disposition home or self-care (01) ==
LOC: ANHLAB 11:43
PROVIDERS: PCP Family Medicine; Visit Provider Physician Assistant
DX: R05.9 Cough, unspecified (principal); R06.02 Shortness of breath; I10 Essential (primary) hypertension
CPT/HCPCS: 36415; 71046; 80053; 84484; 85025

== ENCOUNTER 2024-05-29 10:32 | Outpatient (CLI) | payer MEDICARE, OTHER, SELFPAY ==
[2024-05-29 10:51] LABS: Hematocrit 44.5 % (37.0-47.0); Hemoglobin 14.6 g/dL (12.0-15.0); Mean Corpuscular HGB Conc 32.8 g/dl (32-36); Mean Corpuscular Hemoglobin 30.9 pg (26-34); Mean Corpuscular Volume 94.1 fl (80-100); Mean Platelet Volume 9.7 fl (7.4-10.4); Platelet Count Result 278 k/mm3 (150-375); Red Blood Count 4.73 M/mm3 (4.2-5.4); Red Cell Distribution Width 12.6 % (11.5-14.5); White Blood Count 8.5 K/mm3 (4.5-10.0)
[2024-05-29 11:12] LABS: Alanine Aminotransferase 13 U/L (6-35); Albumin Level 4.3 g/dL (3.5-5.1); Alkaline Phosphatase 136 U/L (38-126); Anion Gap 11 mmol/L (4-12); Aspartate Amino Transferase 18 U/L (14-36); Bilirubin,Total 0.5 mg/dL (0.2-1.3); Blood Urea Nitrogen 16 mg/dL (7-17); Carbon Dioxide 27 mmol/L (22-30); Chloride 100 mmol/L (98-107); Cholesterol 227 mg/dL (0-200); Estimated Glomerular Filt Rate > 60; Glucose 89 mg/dL (65-110); HDL Direct 44 mg/dL; Potassium 3.7 mmol/L (3.4-5.0); Sodium 138 mmol/L (137-145); Triglycerides 114 mg/dL (<150)
[2024-05-29 11:24] LABS: LDL Cholesterol Direct 144 mg/dL
== END 2024-05-29 10:33 | disposition home or self-care (01) ==
LOC: ANHLAB 10:35
PROVIDERS: PCP Family Medicine; Visit Provider Physician Assistant
DX: E78.5 Hyperlipidemia, unspecified (principal); I10 Essential (primary) hypertension
CPT/HCPCS: 36415; 80053; 80061; 85027

== ENCOUNTER 2024-06-20 12:19 | Outpatient (CLI) | payer MEDICARE, OTHER, SELFPAY ==
--- NOTE | ~2024-06-20 | CT_ITS ---
EXAMINATION: CT lung screening DATE: 06/20/2024 13:02 INDICATION: Z87.891 - Personal history of nicotine dependence TECHNIQUE: Computed tomography (CT) of the chest was performed without intravenous contrast. Addition al 3D reconstructions utilizing coronal maximum intensity projection (MIP) were performed. Automated exposure control and iterative reconstruction technique were employed. The dose-length product was 41 .92 mGy-cm. COMPARISON: 05/31/2023 FINDINGS: Calcified right upper lobe nodule along with calcified right hilar and mediastinal lymph nodes consis tent with old granulomatous disease. Unchanged 2 mm noncalcified intrafissural nodule at the junction of the right major and minor fissures. No new or enlarging pulmonary nodules identified. No pneumoni a, pulmonary edema or pleural effusion. Heart size is normal. Atherosclerotic coronary artery calcifi cation. No pericardial effusion. Thoracic aorta is normal in caliber. No pathologically enlarged thor acic lymphadenopathy. Small sliding-type hiatal hernia. Visualized upper abdomen is unremarkable. Mil d thoracic spondylosis. IMPRESSION: 1. Lung-RADS category 2: Benign appearance or behavior. Continue annual screening with noncontrast lo w-dose chest CT in 12 months. Reviewed, dictated and finalized at location B. IMPRESSION: 1. Lung-RADS category 2: Benign appearance or behavior. Continue annual screeni ng with noncontrast low-dose chest CT in 12 months.
== END 2024-06-20 12:20 | disposition home or self-care (01) ==
LOC: MICIMG 12:20
PROVIDERS: PCP Family Medicine; Visit Provider Physician Assistant
DX: Z12.2 Encounter for screening for malignant neoplasm of respiratory organs (principal); Z87.891 Personal history of nicotine dependence
CPT/HCPCS: 71271

== ENCOUNTER 2024-11-29 15:35 | Emergency (ER) | payer MEDICARE, OTHER, SELFPAY ==
[2024-11-29 15:53] VITALS: BP 142/61; PULSE 79; RESP 18; TEMP 36.4; O2SAT 99
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
[2024-11-29] MEDS: ACETAMINOPHEN 500 MG TABLET 1000 MG PO (18:19)
[2024-11-29 18:50] VITALS: BP 146/79; PULSE 67; RESP 18; TEMP 37; O2SAT 100
--- NOTE | 2024-11-29 20:12 | PC.NURSE ---
pt daughter to desk, stating they are leaving d/t wait time. advised to return if symptoms get worse, verbalized understanding
== END 2024-11-29 20:12 | disposition left against medical advice (07) ==
LOC: ANHED 21:00
PROVIDERS: Emergency Provider Physician Assistant; PCP Family Medicine
DX: S09.92XA Unspecified injury of nose, initial encounter (principal); S89.91XA Unspecified injury of right lower leg, initial encounter; I10 Essential (primary) hypertension; J44.9 Chronic obstructive pulmonary disease, unspecified; E78.2 Mixed hyperlipidemia; F51.04 Psychophysiologic insomnia; F41.1 Generalized anxiety disorder; F17.210 Nicotine dependence, cigarettes, uncomplicated; Z79.899 Other long term (current) drug therapy; Z79.82 Long term (current) use of aspirin; V43.52XA Car driver injured in collision with other type car in traffic accident, initial encounter
CPT/HCPCS: 70450; 70486; 72125; 73564; 99284; A9270